=== PATIENT | male | born 2000 | race Caucasian/White ===

== ENCOUNTER 2022-04-28 05:42 | Emergency (ER) | payer BC, SELFPAY ==
[2022-04-28 05:57] VITALS: BP 134/73; PULSE 71; RESP 16; TEMP 36.7; O2SAT 97
--- NOTE | 2022-04-28 06:20 | CRLHL7_ITS ---
For Patients: As a result of the Century Cures Act, medical imaging exams and procedure reports are released immediately into your electronic medical record. You may view this report before your referring provider. If you have questions, please contact your health care provider. INDICATION: Left chest pressure. COMPARISON: None TECHNIQUE: Single-view study FINDINGS: TUBES AND LINES: None. HEART AND MEDIASTINUM: The heart size is normal. The mediastinal contour appears normal for patient age. LUNGS AND PLEURAL SPACES: The lungs appear normal.I see no pleural effusion or pneumothorax. The extreme apical portion of the lungs is excluded from the image. A very small pneumothorax might be inapparent on this exam. If this is within the differential considerations, consider a repeat chest radiograph to include the entirety of the apices. OSSEOUS STRUCTURES: Age-appropriate appearance. No acute focal finding. IMPRESSION: No evidence of active pulmonary disease. The extreme apical portion of the lungs is excluded from the image. Please review the comment regarding this. Dictated by Samir Hernandez MD @ 04/28/2022 6:41:54 AM (Electronically Signed)
--- NOTE | 2022-04-28 06:37 | ED.CHESTPAIN ---
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 Subsequently then numbness into his left arm as if it had been asleep. He admits than that anxiety and pessimism? may have overwhelmed and then made his heart race. Does not have a formal diagnosis of anxiety. No cardiovascular disease. No formal diagnoses for which he takes any medications. No cough or cold symptoms. Discomfort was not pleuritic. No leg pain or swelling. No first-degree relatives with cardiovascular disease or dysrhythmia noted. He notes himself to be generally fit lifting up to 30 lb not infrequently in his work at [employer]. Does not exercise otherwise. No smoking. They called into the triage line and were recommended to be seen in the emergency department. This discomfort occurred about an hour and half prior to this interview. Resolved within an hour of onset. Mom notes later that further conversation regarding and extended family members and their cardiac history would have caused Miah good deal of anxiety; that he tends to get rather worked up. Related Data Allergies Allergy/AdvReac Type Severity Reaction Status Date / Time No Known Drug Allergies Allergy Verified 04/28/22 05:49 Review of Systems Status of ROS Reports: 10 or more systems reviewed and unremarkable except as noted in History and below [facility] Social History Smoking Status: Never smoker Do you use any of these nicotine containing products: None Second hand tobacco smoke exposure: No How often do you have a drink containing alcohol: 2-4 times a month How many standard drinks containing alcohol do you have on a typical day: 1 or 2 How often do you have six or more drinks on one occasion: Never AUDIT-C Alcohol total score: 2 Non-prescribed substance use: denies use Exam Narrative Exam Narrative: Pleasant. NAD but appears mildly anxious/apprehensive. eye glasses. Skin is warm and dry. CN 2 through 12 look to be intact. He's breathing easily. Lungs are clear. There's no supraclavicular crepitus. Heart with regular rate and rhythm. I'm not able to reproduce this discomfort. Abdomen is overweight soft and nontender. Oropharynx is unremarkable. well-perfused and equal upper extremity pulses. minimal discomfort to palpation of upper back musculature. good strength and without sensory deficits. Const Vital Signs, click to edit/add: Vital Signs - 24 hr 04/28/22 05:57 Temperature 98.0 F Pulse Rate [Pulse Oximeter] 71 Respiratory Rate 16 Blood Pressure [Left Upper Arm] 134/73 Pulse Oximetry 97 Oxygen Delivery Method Room Air Documenting provider has reviewed patient's vital signs: yes Course Vital Signs Vital signs: Initial Vital Signs Temperature 98.0 F 04/28/22 05:57 Temperature Source Temporal Artery Scan 04/28/22 05:57 Pulse Rate 71 04/28/22 05:57 Pulse Rhythm 04/28/22 05:57 Respiratory Rate 16 04/28/22 05:57 Blood Pressure 134/73 04/28/22 05:57 Blood Pressure Mean 93 04/28/22 05:57 Pulse Oximetry 97 04/28/22 05:57 Oxygen Delivery Method 04/28/22 05:57 Vital Signs Temperature 98.0 F 04/28/22 05:57 Pulse Rate 71 04/28/22 05:57 Respiratory Rate 16 04/28/22 05:57 Blood Pressure 134/73 04/28/22 05:57 Pulse Oximetry 97 04/28/22 05:57 Oxygen Delivery Method 04/28/22 05:57 Temperature 98.0 F 04/28/22 05:57 Pulse Rate 71 04/28/22 05:57 Respiratory Rate 16 04/28/22 05:57 Blood Pressure 134/73 04/28/22 05:57 Pulse Oximetry 97 04/28/22 05:57 Oxygen Delivery Method 04/28/22 05:57 MDM - Chest Pain MDM Narrative Medical decision making narrative: relatively low risk for cardiovascular disease. no arrhythmia here. proposed monitoring for a time in the ER. no apparent pulmonary disease. vascular disruption unlikely. will check d-dimer and cardiac labs. doubtful pneumo. the pressure as described might represent anxiety. chest xray wnl though uppermost/apices omitted. labs normal see patient discharge plan Lab Data Attestation: I reviewed the patient's lab results. Labs: Lab Results 04/28/22 04/28/22 04/28/22 Range/Units 06:21 06:21 06:30 D-Dimer Quant (PE/DVT) < 0.27 (0.00-0.50) ug/ml Troponin I < 0.01 L (0.01-0.04) ng/mL NT-Pro-B Natriuret Pep 47 pg/mL POC Troponin I 0.00 L (0.01-0.04) ng/ml ECG Data Attestation: I personally reviewed and interpreted this ECG as follows: (Normal sinus rhythm rate of 71. No apparent ischemic changes) Discharge Plan Discharge Clinical Impression: Chest pressure Patient Disposition: Home w/ Parent or Adult Condition: Improved Additional Instructions: I would consider followup with primary care provider to discuss further workup. I do think it would be a good idea to be engaged in a little bit of heart pumping exercise daily. It is good for each one of us to get quality and regular sleep. Return for persistent recurrence of symptoms, increasing shortness of breath, chest pressure/discomfort accompanied by nausea or diaphoresis. Follow Up/Referrals: Provider,Not a Local [Primary Care Provider] - Stand Alone Forms: [employer] Info Instructions
[2022-04-28 07:08] LABS: NT Pro B Type NatriureticPept* 47 pg/mL; Troponin I* < 0.01 ng/mL (0.01-0.04)
[2022-04-28 07:31] LABS: D Dimer Quantitative* < 0.27 ug/ml (0.00-0.50)
== END 2022-04-28 07:46 | disposition home or self-care (01) ==
PROVIDERS: Emergency Provider Family Medicine
DX: R07.89 Other chest pain (principal)
CPT/HCPCS: 36415; 71045; 83880; 84484; 85379; 93005; 99284